=== PATIENT | female | born 1990 | race Caucasian/White ===

== ENCOUNTER 2017-06-25 08:22 | Emergency (ER) | payer MEDICAID, OTHER ==
[~2017-06-25] VITALS: Ht 157.5 cm; Wt 86.0 kg
[2017-06-25 10:56] VITALS: BP 123/77
== END 2017-06-25 10:56 | disposition home or self-care (01) ==
LOC: ER 08:22
DX: O26.892 Other specified pregnancy related conditions, second trimester (principal); K64.4 Residual hemorrhoidal skin tags; Z3A.35 35 weeks gestation of pregnancy
CPT/HCPCS: 99283

== ENCOUNTER 2018-02-01 12:20 | Emergency (ER) | payer MEDICAID, OTHER ==
[~2018-02-01] VITALS: Ht 157.5 cm; Wt 74.0 kg
[2018-02-01 12:34] VITALS: BP 127/79
== END 2018-02-01 13:28 | disposition home or self-care (01) ==
LOC: ER 12:42
DX: N64.4 Mastodynia (principal)
CPT/HCPCS: 99281

== ENCOUNTER 2018-05-30 19:48 | Emergency (ER) | payer OTHER ==
[~2018-05-30] VITALS: Ht 157.5 cm; Wt 79.0 kg
[2018-05-30] MEDS ORDERED: IBUPROFEN 600MG TABLET PO ONE (20:45)
[2018-05-30 21:30] VITALS: BP 129/82
== END 2018-05-30 21:32 | disposition home or self-care (01) ==
LOC: ER 21:09
DX: J06.9 Acute upper respiratory infection, unspecified (principal); H66.93 Otitis media, unspecified, bilateral; R51 Headache
CPT/HCPCS: 71046; 81025; 99284

== ENCOUNTER 2019-02-17 08:23 | Emergency (ER) | payer OTHER ==
[~2019-02-17] VITALS: Ht 157.5 cm; Wt 78.0 kg
[2019-02-17 08:31] VITALS: BP 125/72
[2019-02-17] MEDS ORDERED: ALBUTEROL (0.083%) 2.5MG/3ML NEB HHN ONE (09:00)
[2019-02-17] MEDS ORDERED: ACETAMINOPHEN 325MG TABLET PO ONE (09:00)
== END 2019-02-17 11:36 | disposition home or self-care (01) ==
LOC: ER 08:23
DX: J06.9 Acute upper respiratory infection, unspecified (principal); H66.93 Otitis media, unspecified, bilateral; R07.89 Other chest pain
CPT/HCPCS: 71045; 81025; 94640; 99283; J7611

== ENCOUNTER 2019-03-21 21:20 | Emergency (ER) | payer MEDICAID, OTHER ==
[~2019-03-21] VITALS: Ht 157.5 cm; Wt 79.0 kg
[2019-03-22 01:00] VITALS: BP 110/65
== END 2019-03-22 01:02 | disposition home or self-care (01) ==
LOC: ER 21:20
DX: R07.89 Other chest pain (principal)
CPT/HCPCS: 71045; 93005; 99283; Z7610

== ENCOUNTER 2019-10-24 17:44 | Emergency (ER) | payer OTHER | END 2019-10-24 19:11 | disposition left against medical advice (07) | LOC: ER 17:44 | DX: Z53.21 Procedure and treatment not carried out due to patient leaving prior to being seen by health care provider (principal) ==